=== PATIENT | female | born 1980 | race Caucasian/White ===

== ENCOUNTER 2017-02-15 15:36 | Emergency (ER) | payer MEDICAID ==
[~2017-02-15] VITALS: Ht 154.9 cm; Wt 57.3 kg
[~2017-02-15 15:36] MED LIST: KEP500 PO
[2017-02-15 15:44] VITALS: BP 157/81
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
[2017-02-15 18:20] VITALS: BP 132/76
--- NOTE | 2017-02-15 18:24 | NUR ---
Patient discharged with BP 132/72; DENIES HEADACHE AT THIS TIME.. Written and verbal after care instructions given and explained. Patient alert, oriented and verbalized understanding of instructions. Ambulatory with steady gait. All questions addressed prior to discharge. ID band removed. Patient advised to follow up with PMD. Rx of IBUPROFEN & NORCO given. Patient educated on indication of medication including possible reaction and side effects. Opportunity to ask questions provided and answered.
== END 2017-02-15 18:24 | disposition home or self-care (01) ==
LOC: MED 15:36
DX: S20.20XA Contusion of thorax, unspecified, initial encounter (principal); R03.0 Elevated blood-pressure reading, without diagnosis of hypertension; Z79.899 Other long term (current) drug therapy; Z88.5 Allergy status to narcotic agent; Z88.1 Allergy status to other antibiotic agents
CPT/HCPCS: 71010; 71100; 81002; 81025; 99284